=== PATIENT | male | born 1970 | race African-American/Black ===

== ENCOUNTER 2020-09-20 18:49 | Emergency (ER) | payer SELFPAY ==
[~2020-09-20] VITALS: Ht 188 cm; Wt 100.0 kg
[2020-09-20 20:27] LABS: BASOPHILS % 0.5 % (0.0-2.0); EOSINOPHILS % 0.9 % (0.0-5.0); HEMATOCRIT. 37.5 % (42.0-52.0); HEMOGLOBIN. 12.2 g/dL (14.0-18.0); LYMPHOCYTES % 28.4 % (20.0-50.0); MEAN CORPUSCULAR VOLUME 88.9 fL (80.0-94.0); MEAN PLATELET VOLUME 7.5 fl (7.4-10.4); MONOCYTES % 8.6 % (2.0-8.0); NEUTROPHILS % 61.6 % (40.0-76.0); PLATELET 212 x1000/uL (130-400); RED BLOOD CELL COUNT 4.22 mill/uL (4.7-6.1); RED CELL DISTRIBUTION WIDTH 13.2 % (11.6-14.6)
[2020-09-20 20:34] LABS: CHLORIDE 103 mEq/L (98-107)
[2020-09-20 20:37] LABS: INR 1.1; PROTHROMBIN TIME 11.8 sec (9.6-11.0)
[2020-09-20 20:49] LABS: PHENOBARBITAL < 2.1 ug/mL (15.0-40.0)
[2020-09-20 20:52] LABS: CARBAMAZEPINE < 0.5 ug/mL (4-12); VALPROIC ACID < 3.0 ug/mL (50-100)
[2020-09-21] MEDS ORDERED: KEPP500 MT (00:20)
[2020-09-21 01:40] VITALS: BP 131/78
== END 2020-09-21 01:42 | disposition home or self-care (01) ==
LOC: EDBD 18:59 → ER 18:59
DX: G40.909 Epilepsy, unspecified, not intractable, without status epilepticus (principal); G93.41 Metabolic encephalopathy; Z59.0 Homelessness; R03.0 Elevated blood-pressure reading, without diagnosis of hypertension
CPT/HCPCS: 36415; 71045; 80053; 80156; 80165; 80184; 80185; 85025; 93005; 99285